=== PATIENT | male | born 1930 | race Caucasian/White ===

== ENCOUNTER 2017-03-17 22:47 | Observation (INO) | payer OTHER ==
[~2017-03-17] VITALS: Ht 172.7 cm; Wt 80.0 kg
[2017-03-17] MEDS ORDERED: TAMSULOSIN HCL0.4 MG PO (23:20)
[2017-03-17] MEDS ORDERED: TOPROL XL25 MG PO (23:21)
[2017-03-17] MEDS ORDERED: NAMENDA XR28 MG PO (23:21)
[2017-03-17] MEDS ORDERED: LEVOTHYROXINE150 MCG PO (23:25)
[2017-03-17 23:27] LABS: EOSINOPHIL (%) 3.6 % (0-5); EOSINOPHIL COUNT 0.2 K/uL (0-0.3); HEMATOCRIT 31.1 % (38.0-50.0); IMMATURE GRANULOCYTE (%) 0.3 % (0.0-0.7); INSTRUMENT ABS NEUTROPHIL CT 3.9 K/uL; LYMPHOCYTE COUNT 1.8 K/uL (1.0-2.8); MCH 31.6 PG (29.0-34.0); MCHC 32.8 G/DL (30.0-36.0); MCV 96.3 FL (86-99); MEAN PLAT.VOLUME 11.7 uM^3 (9.0-12.4); MONOCYTE COUNT 0.7 K/uL (0-0.8); NEUTROPHIL (%) 58.8 % (45-76); NEUTROPHIL COUNT 3.9 K/uL (1.8-6.4); PLATELET COUNT 171 K/uL (156-360); RBC DIS.WIDTH-CV 12.7 % (11.8-14.6); RBC DIS.WIDTH-SD 45.4 % (39-53); RED BLOOD COUNT 3.23 M/uL (4.00-5.50); WHITE BLOOD COUNT 6.7 K/uL (4.1-10.2)
[2017-03-17 23:32] LABS: INTER. NORMALIZED RATIO 1.1; PROTHROMBIN TIME 11.9 SEC (10.2-12.9)
[2017-03-17 23:35] LABS: PTT 29.8 SEC (25-37)
[2017-03-17 23:38] LABS: CHLORIDE 108 mEq/L (99-109); POTASSIUM 3.6 mEq/L (3.7-5.4); SODIUM 142 mEq/L (136-147)
[2017-03-17 23:40] LABS: GLUCOSE 123 mg/dL (70-99)
[2017-03-17 23:42] LABS: ANION GAP 10 MEQ/L (2-14)
[2017-03-17 23:44] LABS: GFR ESTIMATE (CALCULATED) 38 mL/min/
[2017-03-17 23:45] LABS: UREA NITROGEN (BUN) 31 mg/dL (9-23)
[2017-03-17 23:46] LABS: ADD MIUA? YES; BILIRUBIN NEGATIVE; BLOOD SMALL; COLOR STRAW ((YELLOW)); GLUCOSE (STRIP) NEGATIVE; KETONES NEGATIVE; LEUKOCYTES NEGATIVE; NITRITE NEGATIVE; PROTEIN (STRIP) 100; SPECIFIC GRAVITY 1.005 (1.000-1.030); UROBILINOGEN 0.2 MG/DL (0.2-1.0)
[2017-03-17 23:48] LABS: BACTERIA NONE SEEN /HPF; EPITHELIAL CELLS RARE /HPF; MUCUS NONE SEEN /LPF; RED BLOOD CELLS 0-5 /HPF (0-5); UCUL ADDED? NO; WHITE BLOOD CELLS 0-5 /HPF (0-5)
[2017-03-17 23:50] LABS: TROP-I INTERPRETATION NEGATIVE; TROPONIN-I 0.15 ng/mL (0.0-0.30)
[2017-03-18 00:34] LABS: POINT-OF-CARE METER ID UU14100415
[2017-03-18] MEDS ORDERED: ONE-A-DAY ESSE1 EAC1 PO (00:51)
[2017-03-18] MEDS ORDERED: COLESTID1 GM PO (00:51)
[2017-03-18] MEDS ORDERED: ASPIR 8181 M1 PO (00:51)
[2017-03-18] MEDS ORDERED: INSULIN (01:02)
[2017-03-18] MEDS ORDERED: HUMALOG MI100 UNIT/5 SC (01:29)
[2017-03-18 01:37] LABS: HDL CHOLESTEROL 36 MG/DL (Desirable>=40); LDL CHOLESTEROL 79 mg/dL (Desirable<100); NON-HDL CHOLESTEROL 110 mg/dL (Desirable<160); TOTAL CHOLESTEROL 146 mg/dL (Desirable<200); TRIGLYCERIDES 155 MG/DL (Normal: <150)
[2017-03-18 02:40] VITALS: BP 168/61
[2017-03-18 03:04] LABS: MAGNESIUM 1.9 mg/dl (1.3-2.7); SAMPLE HEMOLYSIS CHECK 0; SAMPLE ICTERIC CHECK 0; SAMPLE LIPEMIA CHECK 0
[2017-03-18 05:42] LABS: TROP-I INTERPRETATION NEGATIVE; TROPONIN-I 0.11 ng/mL (0.0-0.30)
[2017-03-18 06:01] LABS: POINT-OF-CARE METER ID UU13113700
[2017-03-18 07:18] LABS: Estimated Average Glucose 157 mg/dL (70-123); HEMOGLOBIN A1c (GLYCOHEMOGLOB) 7.1 % HGB (Below 5.7)
[2017-03-18 08:43] VITALS: BP 127/67
[2017-03-18 10:48] LABS: POINT-OF-CARE METER ID UU13113700
[2017-03-18 11:45] VITALS: BP 138/73
[2017-03-18 13:13] LABS: ANION GAP 8 MEQ/L (2-14); CHLORIDE 108 MEQ/L (99-109); GFR ESTIMATE (CALCULATED) 44 mL/min/; GLUCOSE 169 mg/dL (70-99); SAMPLE HEMOLYSIS CHECK 0; SAMPLE ICTERIC CHECK 0; SAMPLE LIPEMIA CHECK 0; SODIUM 139 MEQ/L (136-147); UREA NITROGEN (BUN) 29 mg/dL (9-23)
[2017-03-18 13:16] LABS: POTASSIUM 4.7 MEQ/L (3.7-5.4)
[2017-03-18 13:31] LABS: TROP-I INTERPRETATION NEGATIVE; TROPONIN-I 0.13 ng/mL (0.0-0.30)
[2017-03-18 16:00] VITALS: BP 169/80
[2017-03-18 16:10] LABS: POINT-OF-CARE METER ID UU13113700
== END 2017-03-18 17:30 | disposition home or self-care (01) ==
LOC: EME → EDBD 22:47 → EME 22:47 → EDOF 03-18 01:22 → ENRESERV 03-18 01:23 → 5WEST 03-18 02:24
PROVIDERS: Emergency Medicine; Hospitalist; Physician Assistant Medical
DX: G45.9 Transient cerebral ischemic attack, unspecified (principal); I97.191 Other postprocedural cardiac functional disturbances following other surgery; E11.9 Type 2 diabetes mellitus without complications; F03.90 Unspecified dementia, unspecified severity, without behavioral disturbance, psychotic disturbance, mood disturbance, and anxiety; Z85.51 Personal history of malignant neoplasm of bladder; Z87.891 Personal history of nicotine dependence; Z79.4 Long term (current) use of insulin; Z79.82 Long term (current) use of aspirin
CPT/HCPCS: 70450; 70551; 71010; 80048; 80061; 81003; 82948; 83036; 83735; 84484; 85025; 85610; 85730; 93005; 93880; 99281; 99285; G0378; J1644; J3480